=== PATIENT | female | born 1990 | race American Indian/Alaskan Native ===

== ENCOUNTER 2020-06-28 19:02 | Emergency (ER) | payer MEDICAID ==
[2020-06-28] MEDS ORDERED: Sodium Chloride 0.9% 1,000 ML IV ONE ×2 (19:16→21:17)
[2020-06-28 19:44] LABS: ANION GAP 14.9 mEq/L (7-13); CHLORIDE,CL 103 mmol/L (98-107); SODIUM,NA 137 mmol/L (136-145)
[2020-06-28] MEDS ORDERED: Ondansetron 4 MG/2 ML SDV IVPUSH ONE (21:29)
--- NOTE | 2020-06-28 21:56 | EDM.PDOC ---
ED HPI GENERAL MEDICAL PROBLEM - General Chief Complaint: Neurological Problem Stated Complaint: BLACKOUT, SEIZURES Time Seen by Provider: 06/28/20 19:10 Source of Information: Reports: Patient History Limitations: Reports: No Limitations - History of Present Illness INITIAL COMMENTS - FREE TEXT/NARRATIVE: ED with SO states patient keeps passing out. Patient altered on arrival , in wheelchair head bobbing. Assisted to cot, opens eyes, verbal response appropriate. Denies drug or ETOH. Question seizure, had them with 2 previous pregnancies. Unsure if pg, LMP last month, spotty, recent removal control. Denies any drug use no fever or chills Denies urinary sx. Just felt tired today. - Related Data Allergies Allergy/AdvReac Type Severity Reaction Status Date / Time No Known Allergies Allergy Verified 06/28/20 19:19 Home Meds: Home Meds . 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 ED EXAM, GENERAL - Physical Exam Exam: See Below Exam Limited By: No Limitations General Appearance: No Apparent Distress Eye Exam: Bilateral Eye: EOMI Ears: Normal External Exam Nose: Normal Inspection Throat/Mouth: Normal Inspection Head: Atraumatic, Normocephalic Neck: Normal Inspection Respiratory/Chest: No Respiratory Distress, Lungs Clear Cardiovascular: Normal Peripheral Pulses, Regular Rate, Rhythm, No Edema GI/Abdominal: Normal Bowel Sounds, Soft, Non-Tender Extremities: Normal Inspection, Normal Range of Motion Neurological: Alert, Oriented, Normal Cognition Psychiatric: Flat Affect Skin Exam: Warm, Dry, Intact, Normal Color Course - Vital Signs Last Recorded V/S: Last Vital Signs Temp 98.6 F 06/28/20 21:30 Pulse 84 06/28/20 21:30 Resp 15 06/28/20 21:30 BP 96/55 L 06/28/20 21:30 Pulse Ox 100 06/28/20 21:30 Orthostatic Blood Pressure [ 103/61 Standing] Orthostatic Blood Pressure [ 116/59 Sitting] Orthostatic Blood Pressure [ 101/58 Supine] - Orders/Labs/Meds Labs: Laboratory Tests 06/28/20 06/28/20 06/28/20 Range/Units 19:09 19:09 19:09 WBC 12.4 H (5.0-10.0) 10^3/uL RBC 4.15 L (4.2-5.4) 10^6/uL Hgb 10.0 L (12.0-16.0) g/dL Hct 31.6 L (37.0-47.0) % MCV 76.1 L (80-100) fL MCH 24.1 L (27.0-34.0) pg MCHC 31.6 L (33.0-35.0) g/dL Plt Count 308 (150-450) 10^3/uL Neut % (Auto) 66.7 (42.2-75.2) % Lymph % (Auto) 28.2 (20.5-50.1) % Coke % (Auto) 4.7 (2-8) % Eos % (Auto) 0.2 L (1.0-3.0) % Baso % (Auto) 0.2 (0.0-1.0) % Sodium 137 (136-145) mmol/L Potassium 3.9 (3.5-5.1) mmol/L Chloride 103 (98-107) mmol/L Carbon Dioxide 23 (21-32) mmol/L Anion Gap 14.9 H (7-13) mEq/L BUN 6 L (7-18) mg/dL Creatinine 1.00 (0.55-1.02) mg/dL Est Cr Clr Drug Dosing 79.27 mL/min Estimated GFR (MDRD) > 60 BUN/Creatinine Ratio 6.0 (No establ ref range) Glucose 173 H (74-99) mg/dL Lactic Acid 1.6 (0.4-2.0) mmol/L Calcium 8.0 L (8.5-10.1) mg/dL Total Bilirubin 0.1 L (0.2-1.0) mg/dL AST 14 L (15-37) U/L ALT 25 (14-59) U/L Alkaline Phosphatase 60 (46-116) U/L Total Protein 6.7 (6.4-8.2) g/dL Albumin 2.8 L (3.4-5.0) g/dL Globulin 3.9 Albumin/Globulin Ratio 0.72 Urine Color (YELLOW) Urine Appearance (CLEAR) Urine pH (5.0-9.0) Ur Specific Sherwood (1.005-1.030) Urine Protein (NEGATIVE) Urine Glucose (UA) (NEGATIVE) Urine Ketones (NEGATIVE) Urine Occult Blood (NEGATIVE) Urine Nitrite (NEGATIVE) Urine Bilirubin (NEGATIVE) Urine Urobilinogen (0.2-1.0) mg/dL Ur Leukocyte Esterase (NEGATIVE) Urine RBC /HPF Urine WBC (0-5/HPF) /HPF Ur Epithelial Cells (NOT SEEN) /HPF Amorphous Sediment (NOT SEEN) /HPF Urine Bacteria (0-FEW/HPF) /HPF Urine Mucus (NOT SEEN) /LPF Urine HCG, Qual Urine Opiates Screen (NEGATIVE) Ur Oxycodone Screen (NEGATIVE) Urine Methadone Screen (NEGATIVE) Ur Barbiturates Screen (NEGATIVE) U Tricyclic Antidepress (NEGATIVE) Ur Phencyclidine Scrn (NEGATIVE) Ur Amphetamine Screen (NEGATIVE) U Methamphetamines Scrn (NEGATIVE) Urine MDMA Screen (NEGATIVE) U Benzodiazepines Scrn (NEGATIVE) Urine Cocaine Screen (NEGATIVE) U Marijuana (THC) Screen (NEGATIVE) Ethyl Alcohol < 3 (0) mg/dL 06/28/20 06/28/20 06/28/20 Range/Units 19:16 19:16 19:16 WBC (5.0-10.0) 10^3/uL RBC (4.2-5.4) 10^6/uL Hgb (12.0-16.0) g/dL Hct (37.0-47.0) % MCV (80-100) fL MCH (27.0-34.0) pg MCHC (33.0-35.0) g/dL Plt Count (150-450) 10^3/uL Neut % (Auto) (42.2-75.2) % Lymph % (Auto) (20.5-50.1) % Coke % (Auto) (2-8) % Eos % (Auto) (1.0-3.0) % Baso % (Auto) (0.0-1.0) % Sodium (136-145) mmol/L Potassium (3.5-5.1) mmol/L Chloride (98-107) mmol/L Carbon Dioxide (21-32) mmol/L Anion Gap (7-13) mEq/L BUN (7-18) mg/dL Creatinine (0.55-1.02) mg/dL Est Cr Clr Drug Dosing mL/min Estimated GFR (MDRD) BUN/Creatinine Ratio (No establ ref range) Glucose (74-99) mg/dL Lactic Acid (0.4-2.0) mmol/L Calcium (8.5-10.1) mg/dL Total Bilirubin (0.2-1.0) mg/dL AST (15-37) U/L ALT (14-59) U/L Alkaline Phosphatase (46-116) U/L Total Protein (6.4-8.2) g/dL Albumin (3.4-5.0) g/dL Globulin Albumin/Globulin Ratio Urine Color Yellow (YELLOW) Urine Appearance Slightly cloudy (CLEAR) Urine pH 7.5 (5.0-9.0) Ur Specific Sherwood 1.020 (1.005-1.030) Urine Protein Negative (NEGATIVE) Urine Glucose (UA) Negative (NEGATIVE) Urine Ketones Negative (NEGATIVE) Urine Occult Blood Trace-intact H (NEGATIVE) Urine Nitrite Negative (NEGATIVE) Urine Bilirubin Negative (NEGATIVE) Urine Urobilinogen 0.2 (0.2-1.0) mg/dL Ur Leukocyte Esterase Negative (NEGATIVE) Urine RBC 5-10 H /HPF Urine WBC 0-5 (0-5/HPF) /HPF Ur Epithelial Cells Few (NOT SEEN) /HPF Amorphous Sediment Rare (NOT SEEN) /HPF Urine Bacteria Few (0-FEW/HPF) /HPF Urine Mucus Rare (NOT SEEN) /LPF Urine HCG, Qual Positive Urine Opiates Screen Negative (NEGATIVE) Ur Oxycodone Screen Negative (NEGATIVE) Urine Methadone Screen Negative (NEGATIVE) Ur Barbiturates Screen Negative (NEGATIVE) U Tricyclic Antidepress Negative (NEGATIVE) Ur Phencyclidine Scrn Negative (NEGATIVE) Ur Amphetamine Screen Negative (NEGATIVE) U Methamphetamines Scrn Positive H (NEGATIVE) Urine MDMA Screen Negative (NEGATIVE) U Benzodiazepines Scrn Negative (NEGATIVE) Urine Cocaine Screen Negative (NEGATIVE) U Marijuana (THC) Screen Positive H (NEGATIVE) Ethyl Alcohol (0) mg/dL Meds: Medications Discontinued Medications Generic Name Dose Route Start Last Admin Trade Name Ebony PRN Reason Stop Dose Admin Sodium Chloride 1,000 mls @ 999 mls/hr 06/28/20 19:16 06/28/20 19:20 Normal Saline IV 06/28/20 20:16 999 mls/hr .BOLUS ONE Administration Sodium Chloride 1,000 mls @ 999 mls/hr 06/28/20 21:17 06/28/20 21:29 Normal Saline IV 06/28/20 22:17 999 mls/hr ASDIRECTED ONE Administration Ondansetron HCl 4 mg 06/28/20 21:29 06/28/20 21:32 Zofran IVPUSH 06/28/20 21:30 4 mg ONETIME ONE Administration - Re-Assessments/Exams Free Text/Narrative Re-Assessment/Exam: 06/28/20 21:57 Dozes intermittently, arouses easily to voice. No seizure activity apparent. Up at bedside for Ortho's,. No c/o. Unable to void. Additional IVF. UDS positive, continues to deny and drug use. Departure - Departure Time of Disposition: 21:58 Disposition: Home, Self-Care 01 Condition: Good Clinical Impression: First trimester , Positive urine drug screen, Near syncope Hypotension Qualifiers: Hypotension type: unspecified hypotension type Qualified Code(s): I95.9 - Hypotension, unspecified - Discharge Information *PRESCRIPTION DRUG MONITORING PROGRAM REVIEWED*: No *COPY OF PRESCRIPTION DRUG MONITORING REPORT IN PATIENT PATRICIO: No Instructions: Dehydration, Adult, [id number] Referrals: PCP,None [Ordering Only Provider] - Forms: ED Department Discharge Additional Instructions: clinic follow up with PCP this week schedule ultrasound to determine dates light bland diet increase fluid intake rest vitamins Sepsis Event Note (ED) - Evaluation Sepsis Screening Result: No Definite Risk - Focused Exam Vital Signs: Vital Signs Temp Pulse Resp BP Pulse Ox 06/28/20 21:30 98.6 F 84 15 96/55 L 100 06/28/20 19:48 83 18 100/57 L 100 06/28/20 19:09 95.6 F L 85 19 92/62 98
== END 2020-06-28 22:22 | disposition home or self-care (01) ==
LOC: DL.ED 19:02
DX: O26.891 Other specified pregnancy related conditions, first trimester (principal); R55 Syncope and collapse; O26.51 Maternal hypotension syndrome, first trimester; R82.79 Other abnormal findings on microbiological examination of urine; O99.331 Smoking (tobacco) complicating pregnancy, first trimester; F17.210 Nicotine dependence, cigarettes, uncomplicated
CPT/HCPCS: 36415; 51701; 80053; 80305; 80307; 81001; 81025; 83605; 85025; 93005; 96361; 96374; 99284; J2405; J7030; 99283

== ENCOUNTER 2020-12-03 13:20 | Inpatient (IN) | payer MEDICAID ==
--- NOTE | 2020-12-03 15:26 | US ---
EXAMINATION: OB Ltd 1 or More Fetus SEX: Female AGE: 30 years CLINICAL HISTORY: 30-year-old 4 para 3 female (estimated date of delivery 27 December 2020). No care. Dates? Interpretation: Enlarged uterus. Single live ( heart rate 146 bpm) intrauterine gestation, longitudinal lie and cephalic presentation. Satisfactory amniotic fluid volume (VITO 7.4 cm). Healthy appearing placenta located over the fundus of the uterus clearly away from the internal cervical os. No abruption. measurements: 1. Biparietal diameter 9.32 cm equals a 37 week 6 day gestation. 2. Head circumference dirty for 0.1 cm approximates a 39 week 1 day gestation. 3. Abdominal circumference 33.19 cm equals a 37 week 1 day gestation. 4. Femur length 6.98 cm equals a 35 week 6 day gestation. Average ultrasound age (AUA) 37 weeks 4 days. Estimated weight 3117 gms (6 lbs. 14 oz.) CONCLUSION: Single live 37 week 4 day intrauterine gestation cephalic presentation. Fundal placenta.
[2020-12-03] MEDS ORDERED: Citric Acid/Sodium Citrate Solution 30 ML Cup PO ONE ×2 (17:16→17:46)
[2020-12-03] MEDS: Lactated Ringers 1,000 ML IV SCH (17:20)
[2020-12-03] MEDS ORDERED: Oxytocin/Normal Saline 60 UNIT/1,000 ML BAG ONE (17:22)
[2020-12-03] MEDS ORDERED: ceFAZolin 2 GM in Premix Bag 1 BAG IV ONE (17:46)
[2020-12-03] MEDS ORDERED: Tranexamic Acid 1,000 MG in Sodium Chloride 0.9% 100 ML IV PRN ×2 (17:46→18:57)
[2020-12-03] MEDS ORDERED: Sodium Chloride 0.9% 10 ML Syringe FLUSH PRN (17:46)
[2020-12-03] MEDS ORDERED: Oxytocin/Normal Saline 30 UNIT/500 ML BAG IV SCH (18:00)
[2020-12-03] MEDS ORDERED: Lactated Ringers 1,000 ML IV SCH ×2 (18:00→19:00)
[2020-12-03 18:21] LABS: METHAMPHETAMINES,URINE POSITIVE (NEGATIVE)
[2020-12-03 18:22] LABS: AMPHETAMINES,URINE NEGATIVE (NEGATIVE); BARBITURATES,URINE NEGATIVE (NEGATIVE); BENZODIAZEPINE,URINE NEGATIVE (NEGATIVE); MDMA (ECSTASY), URINE NEGATIVE (NEGATIVE); METHADONE,URINE NEGATIVE (NEGATIVE); OPIATES,URINE NEGATIVE (NEGATIVE); OXYCODONE,URINE NEGATIVE (NEGATIVE); PHENCYCLIDINE,URINE NEGATIVE (NEGATIVE); TCA,URINE NEGATIVE (NEGATIVE)
[2020-12-03] MEDS ORDERED: Acetaminophen 325 MG Tab PO PRN (18:57)
[2020-12-03] MEDS ORDERED: Carboprost Tromethamine 250 MCG/1 ML Amp IM PRN (18:57)
[2020-12-03] MEDS ORDERED: Ondansetron 4 MG/2 ML SDV IVPUSH PRN (18:57)
[2020-12-03] MEDS ORDERED: ePHEDrine 50 MG/ML SDV IVPUSH PRN (18:57)
[2020-12-03] MEDS ORDERED: Naloxone 2 MG/2 ML Syringe IVPUSH PRN (18:57)
[2020-12-03] MEDS ORDERED: Acetaminophen/oxyCODONE 325-5 MG Tab PO PRN (18:57)
[2020-12-03] MEDS ORDERED: diphenhydrAMINE 50 MG/ML SDV IVPUSH PRN (18:57)
[2020-12-03] MEDS ORDERED: Misoprostol 400 MCG (4 X 100 MCG TAB) RECTAL PRN (18:57)
[2020-12-03] MEDS ORDERED: Methylergonovine 0.2 MG/1 ML Amp IM PRN (18:57)
[2020-12-03] MEDS: Simethicone 80 MG Tab.Chew PO SCH (23:31)
[2020-12-04] MEDS: Ketorolac 30 MG/ML SDV IVPUSH SCH ×3 (00:51→13:01)
--- NOTE | 2020-12-04 01:48 | HP ---
HISTORY OF PRESENT ILLNESS: The patient admitted 12/03/2020, [facility] (formerly [facility])[3]. The patient is a 30-year-old, G4, P3, with no care, who noticed rupture of fluid at roughly 2 p.m. She last ate at roughly noon. The patient has not had any major contractions, had no vaginal bleeding. Good movement. She did have an ultrasound today which did make her 37 weeks and 4 days. OB HISTORY: The patient has had 3 C-sections. The first one, she did have preeclampsia. Also, one of her pregnancies was complicated by an exploratory laparotomy needed to remove a trichobezoar. Smallest baby born was 6 pounds. 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 No STDs. PAST MEDICAL HISTORY: Negative. PAST SURGICAL HISTORY: The 3 C-sections, the exploratory laparotomy, and cholecystectomy. SOCIAL HISTORY: The patient is a smoker. ALLERGIES: The patient has no known drug allergies. REVIEW OF SYSTEMS: The patient did have one visit with Dr. Oconnell. Never had any labs drawn. She thinks her last menstrual period was before the 17 of April. Again, ultrasound today did date her at 37 weeks and 4 days. VITO was borderline at 7.4. Infant is vertex, fundal placenta. PHYSICAL EXAMINATION: Vital Signs: The patient's blood pressure 131/82, temp 96.6. Lungs: Clear to auscultation bilaterally. Heart: Regular rate and rhythm. Abdomen: The infant is reactive, reassuring. There is some irritability, rare contractions. Pelvic: Speculum exam was performed. There was pooling. There was ferning and she was AmniSure positive. Cervix is closed, thick, and high. Also performed a GBS, gonorrhea, chlamydia, wet prep. Did send her labs. White count was 11.6, hemoglobin 10.3. ASSESSMENT AND PLAN: A 30-year-old, G4, P3, with no care, 37 weeks by ultrasound today with rupture of membranes. She has had a history of x3. We will send her labs. I will follow up on those. Otherwise, we will proceed with a repeat this afternoon. I have checked with her family physician and she is comfortable caring for this , who is likely term, but there is some risk of prematurity. [facility] /[id number] MTDD
[2020-12-04] MEDS: Lactated Ringers 1,000 ML IV SCH ×2 (02:37→10:51)
[2020-12-04] MEDS: Simethicone 80 MG Tab.Chew PO SCH ×4 (08:56→22:34)
[2020-12-04] MEDS: Prenatal Multivitamin with Calcium/Folic Acid/Iron Tab PO SCH (08:56)
[2020-12-04] MEDS ORDERED: Famotidine 20 MG/2 ML SDV IVPUSH PRN (10:17)
--- NOTE | 2020-12-04 12:28 | PN ---
DATE: 12/04/2020 LOCATION: [facility]. SUBJECTIVE: The patient is postoperative day #1 from a repeat with no care. Mom and baby are both doing well. She is bottle-feeding. She is already starting to tolerate p.o., but has not had her Dalal removed yet. Pain control is good. PHYSICAL EXAMINATION: Vital Signs: The patient is afebrile. Heart rate 71 to 87, blood pressure systolic 121 to 132 over 74 to 82, respiratory rate 16 to 20, O2 sat 97%. Urine output has been good. Abdomen: Benign. Dressing intact. Extremities: No tenderness. No edema. Pelvic: Fundus is firm below the umbilicus. LABORATORY DATA: The patient's pre-delivery hemoglobin was 10.3. CBC this morning showed a white count of 19.1, hemoglobin 9.4, and platelets of 367. Prior to delivery, the patient did have -induced hypertension labs, those were normal. Protein-creatinine ratio of 0.17. Some of her labs have returned. Urine drug screen was positive for methamphetamine and THC. She is HIV negative, COVID negative, O positive, antibody negative. Hepatitis B, hepatitis C, gonorrhea, chlamydia, group B strep and rubella are all still pending. ASSESSMENT AND PLAN: Therefore, postoperative day 1 status post repeat C- section. Mom and baby are both doing well. We will continue postoperative cares as well as to continue to follow up on her labs. [facility] /[id number]
--- NOTE | 2020-12-04 12:43 | OR ---
DATE: 12/04/2020 PREOPERATIVE DIAGNOSIS: This is an intrauterine at 37 weeks gestational age by ultrasound today. The patient with no care, history of x3 and now with premature rupture of membranes. POSTOPERATIVE DIAGNOSIS: This is an intrauterine at 37 weeks gestational age by ultrasound today. The patient with no care, history of x3 and now with premature rupture of membranes. PROCEDURE: Repeat low transverse section. MANAGER ANIMAL: Dr. Newell. FINDINGS: There was normal female anatomy, viable which weighed 3190 g, scores were 9 and 9. ESTIMATED BLOOD LOSS: 400 mL. PROCEDURE IN DETAIL: The patient did arrive on Labor and delivery with no care. Ultrasound was performed and it appears the patient is 37 weeks gestational age. The labs were drawn. Rupture of membranes was confirmed and she did consent to a repeat . Therefore, she was taken to the operating room where she was prepped and draped in the normal sterile fashion with a Dalal in place and a leftward tilt. The spinal anesthesia was found be adequate. Skin incision was made through the old Pfannenstiel scar, carried down to the underlying fascia. Fascia was incised in the midline. Fascial incision was extended laterally using the heavy scissors. Upper aspect of the fascia was grasped with Johnnie clamps and the rectus muscles were dissected off bluntly and with the Bovie. Lower aspect of the fascia was grasped with Johnnie clamps and again, the rectus muscles were dissected off bluntly and with the Bovie. Rectus muscles were in the midline. Peritoneum was entered with blunt finger dissection. Peritoneum was stretched open. Bladder blade was inserted. Vesicouterine peritoneum was grasped with pickups and entered sharply with the Metzenbaum scissors and a bladder flap was created digitally. Bladder blade was reinserted. Lower uterine segment was incised in a transverse fashion with the scalpel. The hysterotomy was extended using the Barfield method. The AROM was clear. Infant's head was grasped. The infant was delivered without any difficulty. The cord was cut and clamped. The infant was handed off to the waiting Labor and Delivery nurse. The placenta was then delivered. Uterus was exteriorized and cleared of all clots and debris and the hysterotomy was repaired with a running locked 0 Vicryl with 2 [id number] for excellent hemostasis. Again, ovaries, tubes, and uterus all appeared normal. The uterus was returned to the abdomen. Pelvis was copiously irrigated. The peritoneum was reapproximated with a 3-0 Vicryl running stitch. Fascia was repaired with a running 0 Vicryl stitch. Subcutaneous fat was irrigated and the skin was repaired using a 4-0 Monocryl on a Pipe needle with Steri-Strips over that. The patient tolerated the procedure well. Sponge, lap, needle counts were correct x2. The patient was taken to the recovery room to be with her baby who is also doing well. This patient is starting to consider permanent sterilization. We will discuss that . [facility] /[id number] MTDD
[2020-12-04] MEDS: Acetaminophen/oxyCODONE 325-5 MG Tab PO PRN ×2 (18:38→22:36)
[2020-12-04] MEDS: Docusate Sodium 100 MG Cap PO PRN (22:34)
[2020-12-04] MEDS: Ibuprofen 800 MG Tab PO PRN (22:35)
[2020-12-05] MEDS: Acetaminophen/oxyCODONE 325-5 MG Tab PO PRN ×5 (02:41→20:52)
[2020-12-05] MEDS: Ibuprofen 800 MG Tab PO PRN ×2 (06:34→16:16)
[2020-12-05] MEDS: Simethicone 80 MG Tab.Chew PO SCH ×4 (08:06→20:51)
[2020-12-05] MEDS: Prenatal Multivitamin with Calcium/Folic Acid/Iron Tab PO SCH (08:07)
--- NOTE | 2020-12-05 17:08 | PN ---
DATE: 12/05/2020 SUBJECTIVE: The patient is postoperative day 2 status post repeat with no care. Mom and baby are both doing well. She is tolerating p.o., ambulating, voiding. Still some soreness on the left hand side, but relatively good pain control. PHYSICAL EXAMINATION: Vital Signs: The patient is afebrile. Heart rate 73 to 90, blood pressure 124 to 136 systolic over 69 to 89 diastolic, respiratory rate 18 to 20, O2 sat 97% to 100%. Abdomen: Benign. The dressing is clean, dry, and intact. She will remove that today in the shower. Extremities: Have no tenderness, no edema. The patient is O positive. Her hepatitis B, hep C, gonorrhea, chlamydia, group B strep, rubella, and syphilis are all still pending. The patient's postoperative hemoglobin yesterday was 9.4, down from 10.3, consistent with acute blood loss anemia. ASSESSMENT AND PLAN: Postoperative day 2 status post repeat with no care. Mom and baby are both doing well. We will continue postoperative care, likely discharge tomorrow and we will continue to follow up on her lab. [facility] /[id number] ROMAN
[2020-12-05] MEDS ORDERED: hydrOXYzine HCl 25 MG Tab PO PRN (19:25)
[2020-12-05] MEDS: Nicotine 21 MG/24 Hr Patch TRDERM SCH (19:41)
[2020-12-05] MEDS: Docusate Sodium 100 MG Cap PO PRN (20:51)
[2020-12-06] MEDS: Ibuprofen 800 MG Tab PO PRN ×2 (01:34→09:46)
[2020-12-06] MEDS: Acetaminophen/oxyCODONE 325-5 MG Tab PO PRN ×4 (01:35→14:50)
[2020-12-06] MEDS: Nicotine 21 MG/24 Hr Patch TRDERM SCH (08:22)
[2020-12-06] MEDS: Prenatal Multivitamin with Calcium/Folic Acid/Iron Tab PO SCH (08:22)
[2020-12-06] MEDS: Simethicone 80 MG Tab.Chew PO SCH ×3 (08:22→18:07)
[2020-12-06] MEDS: Docusate Sodium 100 MG Cap PO PRN (08:22)
[2020-12-06] MEDS ORDERED: Oxytocin/Normal Saline 30 UNIT/500 ML BAG IV ONE (10:09)
--- NOTE | 2020-12-06 15:58 | PCM.DCSUM1 ---
Discharge Summary - Hospital Course Free Text/Narrative:: 30-year-old, now , POD#3 s/p repeat LTCS for PROM at 37w4d by ultrasound on the day of delivery --No care --Maternal drug use Diagnosis: Stroke: No - Discharge Data Discharge Date: 12/06/20 Discharge Disposition: Home, Self-Care 01 Condition: Good - Referral to Home Health Primary Care Physician: Kaykay Oconnell MD - Patient Summary/Data Operative Procedure(s) Performed: Repeat low transverse section Complications: None Consults: Consultations 12/06/20 13:53 Consult to Supervisor Finishing [CONS] Routine Labs Pending at D/C: None Recommended Follow-up Testing/Procedures: None Planned Operative Procedure(s) after DC: None Hospital Course: Please see subjective section - Patient Instructions Diet: Usual Diet as Tolerated Activity: As Tolerated, No Lifting Over 20 Pounds Driving: Do Not Drive (while taking pain medication) Showering/Bathing: May Shower Wound/Incision Care: Keep Operative Site/Wound Site Clean and Dry Notify Provider of: Fever, Increased Pain, Swelling and Redness, Drainage, Nausea and/or Vomiting - Discharge Plan *PRESCRIPTION DRUG MONITORING PROGRAM REVIEWED*: No *COPY OF PRESCRIPTION DRUG MONITORING REPORT IN PATIENT PATRICIO: No Home Medications: Home Meds Pnv No.95/Ferrous Fum/Folic AC [ Multivitamin Tablet] 1 tab PO DAILY 12/03/20 [History] Acetaminophen [Tylenol] 650 mg PO Q6H PRN tablet 12/06/20 [Rx] Acetaminophen/oxyCODONE [Percocet 325-5 MG] 1 tab PO Q4H PRN tablet 12/06/20 [Rx] Docusate Sodium [Colace] 100 mg PO Q12H PRN cap 12/06/20 [Rx] Ibuprofen [Motrin] 800 mg PO Q8H PRN tablet 12/06/20 [Rx] Patient Handouts: Baby Blues, Care After Delivery - Discharge Summary/Plan Comment DC Time >30 min.: No Discharge Summary/Plan Comment: Discharged home today with #30 tabs Percocet for pain. Patient advised to follow-up in 6-8 weeks for routine care or sooner as needed. Reasons to return to the clinic or present to the ED were reviewed with the patient, and all questions were answered. Routine discharge care provided. - General Info Date of Service: 12/06/20 Subjective Update: POD#3. Patient is doing well. Pain well controlled. Tolerating a general diet. Ambulating without difficulty. Has been urinating and passing gas. Did have a bowel movement. Denies fever, chills, nausea, vomiting or headache. BP was elevated overnight; however, PIH labs were unremarkable and it has improved this morning. Breast and bottle feeding, and this is going well. No concerns per patient or per nursing staff. Functional Status: Reports: Pain Controlled, Tolerating Diet, Ambulating, Urinating. Denies: New Symptoms - Review of Systems General: Reports: No Symptoms HEENT: Reports: No Symptoms Pulmonary: Reports: No Symptoms Cardiovascular: Reports: No Symptoms Gastrointestinal: Reports: No Symptoms Genitourinary: Reports: No Symptoms Musculoskeletal: Reports: No Symptoms Skin: Reports: No Symptoms - Patient Data Vitals - Most Recent: Last Vital Signs Temp 36.9 C 12/06/20 14:30 Pulse 82 12/06/20 14:30 Resp 16 12/06/20 14:30 BP 130/80 12/06/20 14:30 Pulse Ox 100 12/06/20 08:00 Weight - Most Recent: 95.254 kg Lab Results - Last 24 hrs: Laboratory Results - last 24 hr 12/05/20 12/05/20 12/05/20 Range/Units 19:40 19:40 20:45 WBC 10.8 H (5.0-10.0) 10^3/uL RBC 3.59 L (4.2-5.4) 10^6/uL Hgb 9.5 L (12.0-16.0) g/dL Hct 29.0 L (37.0-47.0) % MCV 80.8 (80-100) fL MCH 26.5 L (27.0-34.0) pg MCHC 32.8 L (33.0-35.0) g/dL Plt Count 383 (150-450) 10^3/uL BUN 7 (7-18) mg/dL Creatinine 0.54 L (0.55-1.02) mg/dL Est Cr Clr Drug Dosing 146.79 mL/min Estimated GFR (MDRD) > 60 Uric Acid 4.2 (2.6-6.0) mg/dL AST 20 (15-37) U/L ALT 19 (14-59) U/L Lactate Dehydrogenase 190 (81-234) U/L Urine Color [place] (YELLOW) Urine Appearance Turbid (CLEAR) Urine pH 6.5 (5.0-9.0) Ur Specific [place] 1.020 (1.005-1.030) Urine Protein 100 H (NEGATIVE) Urine Glucose (UA) Negative (NEGATIVE) Urine Ketones Negative (NEGATIVE) Urine Occult Blood Large H (NEGATIVE) Urine Nitrite Negative (NEGATIVE) Urine Bilirubin Negative (NEGATIVE) Urine Urobilinogen 0.2 (0.2-1.0) mg/dL Ur Leukocyte Esterase Negative (NEGATIVE) Ur Random Creatinine (No establ ref range) mg/dL U Random Total Protein (0.0-11.9) mg/dL Protein/Creatinin Ratio (<150.0) mg/g 12/05/20 Range/Units 20:45 WBC (5.0-10.0) 10^3/uL RBC (4.2-5.4) 10^6/uL Hgb (12.0-16.0) g/dL Hct (37.0-47.0) % MCV (80-100) fL MCH (27.0-34.0) pg MCHC (33.0-35.0) g/dL Plt Count (150-450) 10^3/uL BUN (7-18) mg/dL Creatinine (0.55-1.02) mg/dL Est Cr Clr Drug Dosing mL/min Estimated GFR (MDRD) Uric Acid (2.6-6.0) mg/dL AST (15-37) U/L ALT (14-59) U/L Lactate Dehydrogenase (81-234) U/L Urine Color (YELLOW) Urine Appearance (CLEAR) Urine pH (5.0-9.0) Ur Specific [place] (1.005-1.030) Urine Protein (NEGATIVE) Urine Glucose (UA) (NEGATIVE) Urine Ketones (NEGATIVE) Urine Occult Blood (NEGATIVE) Urine Nitrite (NEGATIVE) Urine Bilirubin (NEGATIVE) Urine Urobilinogen (0.2-1.0) mg/dL Ur Leukocyte Esterase (NEGATIVE) Ur Random Creatinine 53.20 (No establ ref range) mg/dL U Random Total Protein 71.4 H (0.0-11.9) mg/dL Protein/Creatinin Ratio 1342.1 H (<150.0) mg/g LUIS ARMANDO Results - Last 24 hrs: Microbiology 12/03/20 15:05 Group B Streptococcus Culture - Final Vaginal/Rectal NEGATIVE STREP GROUP B Med Orders - Current: Current Medications Acetaminophen (Tylenol) 650 mg PO Q6H PRN PRN Reason: Mild Pain (1-3) or Fever Carboprost Tromethamine (Hemabate Ds) 250 mcg IM ONETIME PRN PRN Reason: Bleeding Diphenhydramine HCl (Benadryl) 25 mg IVPUSH Q6H PRN PRN Reason: Itching or Nausea Last Admin: 12/04/20 02:34 Dose: 25 mg Documented by: Docusate Sodium (Colace) 100 mg PO Q12H PRN PRN Reason: Constipation Last Admin: 12/06/20 08:22 Dose: 100 mg Documented by: Ephedrine Sulfate (Ephedrine Sulfate) 5 mg IVPUSH SEECOMMENT PRN PRN Reason: Other Famotidine (Pepcid) 20 mg IVPUSH BID PRN PRN Reason: Itching Last Admin: 12/04/20 10:52 Dose: 20 mg Documented by: Hydroxyzine HCl (Atarax) 50 mg PO Q6H PRN PRN Reason: Itching Last Admin: 12/06/20 01:41 Dose: 50 mg Documented by: Lactated Ringer's (Ringers, Lactated) 1,000 mls @ 125 mls/hr IV ASDIRECTED SAYRA Last Infusion: 12/04/20 17:13 Dose: 125 mls/hr Documented by: Lactated Ringer's (Ringers, Lactated) 1,000 mls @ 500 mls/hr IV .BOLUS SAYRA Tranexamic Acid 1,000 mg/ (Sodium Chloride) 110 mls @ 660 mls/hr IV ONETIME PRN PRN Reason: Bleeding Oxytocin/Sodium Chloride (Pitocin In Ns 30 Unit/500 Ml) 30 unit in 500 mls @ 2 mls/hr IV TITRATE SAYRA; Protocol Last Admin: 12/03/20 19:02 Dose: 125 munits/min, 125 mls/hr Documented by: Lactated Ringer's (Ringers, Lactated) 1,000 mls @ 125 mls/hr IV ASDIRECTED SAYRA Tranexamic Acid 1,000 mg/ (Sodium Chloride) 110 mls @ 660 mls/hr IV ONETIME PRN PRN Reason: Bleeding Ibuprofen (Motrin) 800 mg PO Q8H PRN PRN Reason: Cramping Last Admin: 12/06/20 09:46 Dose: 800 mg Documented by: Methylergonovine Maleate (Methergine) 0.2 mg IM ONETIME PRN PRN Reason: Excessive Vaginal Bleeding Misoprostol (Cytotec) 800 mcg RECTAL ASDIRECTED PRN PRN Reason: Excessive bleeding Naloxone HCl (Narcan) 0.1 mg IVPUSH SEECOMMENT PRN PRN Reason: Respiratory Depression Nicotine (Habitrol) 21 mg TRDERM DAILY [facility] Last Admin: 12/06/20 08:22 Dose: 21 mg Documented by: Ondansetron HCl (Zofran) 4 mg IVPUSH Q4H PRN PRN Reason: Nausea/Vomiting Oxycodone/Acetaminophen (Percocet 325-5 Mg) 1 tab PO Q4H PRN PRN Reason: Pain (moderate 4-6) Oxycodone/Acetaminophen (Percocet 325-5 Mg) 2 tab PO Q4H PRN PRN Reason: Pain (moderate 4-6) Last Admin: 12/06/20 14:50 Dose: 2 tab Documented by: Prenat Multivit/[place]/Iron/Folic Ac ( Plus Iron) 1 each PO DAILY [facility] Last Admin: 12/06/20 08:22 Dose: 1 each Documented by: Simethicone (Simethicone) 160 mg PO QID [facility] Last Admin: 12/06/20 14:51 Dose: 160 mg Documented by: Sodium Chloride (Saline Flush) 10 ml FLUSH ASDIRECTED PRN PRN Reason: Keep Vein Open Discontinued Medications Citric Acid/Sodium Citrate (Bicitra Solution) 30 ml PO ONETIME ONE Stop: 12/03/20 17:17 Last Admin: 12/03/20 17:45 Dose: 30 ml Documented by: Citric Acid/Sodium Citrate (Bicitra Solution) 30 ml PO ONETIME ONE Stop: 12/03/20 17:47 Last Admin: 12/03/20 21:24 Dose: Not Given Documented by: Cefazolin Sodium/Dextrose (Ancef 2 Gm/50 Ml) Confirm Administered Dose 50 mls @ as directed .ROUTE .STK-MED ONE Stop: 12/03/20 17:23 Oxytocin/Sodium Chloride (Pitocin In Ns 30 Unit/500 Ml) Confirm Administered Dose 60 unit in 1,000 mls @ as directed .ROUTE .STK-MED ONE Stop: 12/03/20 17:23 Cefazolin Sodium/Dextrose 2 gm (/ Premix) 50 mls @ 100 mls/hr IV ONETIME ONE Stop: 12/03/20 18:15 Last Admin: 12/03/20 17:54 Dose: 100 mls/hr Documented by: Oxytocin/Sodium Chloride (Pitocin In Ns 30 Unit/500 Ml) 30 unit in 500 mls @ as directed IV .STK-MED ONE Stop: 12/06/20 10:10 Ketorolac Tromethamine (Toradol) 15 mg IVPUSH Q6H SAYRA Stop: 12/04/20 13:01 Last Admin: 12/04/20 13:01 Dose: 15 mg Documented by: - Exam General: Reports: Alert, Oriented Lungs: Reports: Clear to Auscultation, Normal Respiratory Effort Cardiovascular: Reports: Regular Rate, Regular Rhythm GI/Abdominal Exam: Soft Back Exam: Reports: Normal Inspection Extremities: Normal Inspection, No Pedal Edema Skin: Reports: Warm, Dry, Intact Wound/Incisions: Reports: Healing Well, No Drainage. Denies: Erythema
[2020-12-06] MEDS ORDERED: Sodium Bicarbonate 4.2% 2.5 MEQ/5 ML SDV ONE (16:04)
[2020-12-06] MEDS ORDERED: Lactated Ringers 1,000 ML IV ONE (16:04)
[2020-12-06] MEDS ORDERED: diphenhydrAMINE 50 MG/ML SDV IV ONE (16:04)
[2020-12-06] MEDS ORDERED: Ondansetron 4 MG/2 ML SDV IV ONE (16:04)
[2020-12-06] MEDS ORDERED: Morphine PF 1 MG/ML Amp ONE (16:04)
[2020-12-06] MEDS ORDERED: Dexamethasone 4 MG/ML SDV IV ONE (16:04)
[2020-12-06] MEDS ORDERED: Ketorolac 30 MG/ML SDV IVPUSH ONE (16:04)
[2020-12-07 11:47] LABS: C.TRACHOMATIS BY TMA Negative (Negative)
[2020-12-07 12:42] LABS: N.GONORRHOEAE BY TMA Negative (Negative)
== END 2020-12-06 17:40 | disposition home or self-care (01) | DRG 787 ==
LOC: DL.OBCHECK 13:20 → DL.OB 17:06 → OBSVTOIN 18:23
PROVIDERS: ADMIT Obstetrics & Gynecology; ATTEND Obstetrics & Gynecology
PROC: 10D00Z1 Extraction of Products of Conception, Low, Open Approach (ICD-10-PCS; principal; 2020-12-03)
DX: O34.211 Maternal care for low transverse scar from previous cesarean delivery (principal); O99.324 Drug use complicating childbirth; Z3A.37 37 weeks gestation of pregnancy; Z37.0 Single live birth; O42.02 Full-term premature rupture of membranes, onset of labor within 24 hours of rupture; F15.90 Other stimulant use, unspecified, uncomplicated; Z20.822 Contact with and (suspected) exposure to COVID-19
CPT/HCPCS: 01961; 36415; 51702; 76815; 80305-QW; 80307; 81003; 82274; 82565; 82570; 83615; 84112; 84156; 84450; 84460; 84520; 84550; 85027; 86592; 86762; 86803; 86850; 86900; 86901; 87081; 87210; 87340; 87389; 87491; 87591; A9270-GY; J0690; J1100; J1200; J1885; J2274; J2405; J2590; J3490; J7120; U0002

== ENCOUNTER 2022-08-03 21:08 | Emergency (ER) | payer MEDICAID ==
[2022-08-03] MEDS ORDERED: LORazepam 2 MG/ML SDV ONE (21:10)
[2022-08-03] MEDS ORDERED: Haloperidol Lactate 5 MG/ML SDV ONE (21:10)
[2022-08-03] MEDS ORDERED: diphenhydrAMINE 50 MG/ML SDV ONE (21:10)
[2022-08-03] MEDS: Lidocaine 1% 10 ML MDV ONE (21:13)
== END 2022-08-03 21:30 | disposition home or self-care (01) ==
LOC: DL.ED 21:08
DX: S01.511A Laceration without foreign body of lip, initial encounter (principal)
CPT/HCPCS: 12011; 99282; 99284

== ENCOUNTER 2022-11-18 14:38 | Emergency (ER) | payer MEDICAID | END 2022-11-18 16:20 | disposition left against medical advice (07) | LOC: DL.ED 14:38 | DX: Z53.21 Procedure and treatment not carried out due to patient leaving prior to being seen by health care provider (principal) ==